=== PATIENT | male | born 1985 | race African-American/Black ===

== ENCOUNTER 2016-09-06 21:26 | Emergency (ER) | payer MEDICAID, OTHER ==
[~2016-09-06] VITALS: Ht 182.9 cm; Wt 68.0 kg
[~2016-09-06 21:26] MED LIST: AUGMENTIN 875-1 EAC1 ORAL; NKM
[2016-09-06] MEDS ORDERED: KEPPRA500 M4 ORAL (21:45)
[2016-09-06 21:49] VITALS: BP 126/85
--- NOTE | 2016-09-06 22:01 | Emergency Room Report ---
History of Present Illness General Chief Complaint: Laceration Source: Patient Present Illness HPI Is a 30-year-old male who is right-hand dominant. He presents with chief complaint of laceration to the right forearm. Onset was acute. He was angry so he punched a window. Somehow got this laceration to the distal forearm on the ball aspect. No foreign body. No pain. Bleeding stopped already. Allergies: Coded Allergies: No Known Allergies (Unverified , 02/28/16) Patient History Past Medical History: none, see triage record, old chart reviewed Past Surgical History: none Pertinent Family History: none Social History: Reports: smoking Immunizations: UTD Reviewed Nursing Documentation: PMH: Agreed, PSxH: Agreed Nursing Documentation-PMH Hx Seizures: Yes Review of Systems Eye: Denies: blurred vision, eye pain ENT: Denies: ear pain, nose congestion, throat swelling Respiratory: Denies: cough, shortness of breath Cardiovascular: Denies: chest pain, palpitations Gastrointestinal: Denies: abdominal pain, diarrhea, nausea, vomiting Musculoskeletal: Denies: back pain, joint pain Skin: Denies: rash Neurological: Denies: headache, numbness Endocrine: Denies: increased thirst, increased urine Hematologic/Lymphatic: Denies: easy bruising All Other Systems: negative except mentioned in HPI Physical Exam Vital Signs Date Time Temp Pulse Resp B/P Pulse Ox O2 Delivery O2 Flow Rate FiO2 09/06/16 21:39 97.9 52 16 126/85 99 Room Air vitals normal Sp02 EP Interpretation: reviewed, normal General Appearance: well appearing, no apparent distress, alert Head: normocephalic, atraumatic Eyes: bilateral eye EOMI, bilateral eye PERRL ENT: hearing grossly normal, normal pharynx Neck: full range of motion, supple, no meningismus Respiratory: chest non-tender, lungs clear, normal breath sounds Cardiovascular #1: regular rate, rhythm, no murmur Gastrointestinal: normal bowel sounds, non tender, no mass, no organomegaly, no bruit, non-distended Musculoskeletal: back normal, gait/station normal, normal range of motion, other - Right forearm: 1 cm superficial laceration to the distal third on the volar aspect. No active bleeding. No foreign body. No tendon laceration. Psychiatric: mood/affect normal Skin: warm/dry Procedures Laceration/Wound Repair Laceration/Wound Repair : Consent: Verbal Wound Location: upper extremity Wound's Depth, Shape: superficial Wound Length (cm): 1 Wound Explored: clean Wound Repaired With: Dermabond Patient Tolerated: Well Complications: None Progress I clean up and dry blood no active bleeding. No foreign body. I closed it with Dermabond. Medical Decision Making Diagnostic Impression: Primary Impression: Laceration of forearm, right Qualified Codes: S51.811A - Laceration without foreign body of right forearm, initial encounter ER Course Patient present with superficial laceration to the forearm. No foreign body. No tendon laceration. Low risk for infection. somehow, there is no injury to the hand. We'll discharge home. Last Vital Signs Date Time Temp Pulse Resp B/P Pulse Ox O2 Delivery O2 Flow Rate FiO2 09/06/16 21:39 97.9 52 16 126/85 99 Room Air Status: improved Disposition: HOME, SELF-CARE Condition: Stable Additional Instructions: Followup with your Dr. in 7 days. Return if symptom worsen. RODRIGO MONTALVO M.D. Sep 06, 2016 22:01
[2016-09-06 22:07] VITALS: BP 126/85
== END 2016-09-06 22:07 | disposition home or self-care (01) ==
LOC: EMR 21:56
DX: S51.811A Laceration without foreign body of right forearm, initial encounter (principal); F17.200 Nicotine dependence, unspecified, uncomplicated; W25.XXXA Contact with sharp glass, initial encounter; Y92.9 Unspecified place or not applicable
CPT/HCPCS: 12001; 99284; Z7502